=== PATIENT | female | born 1950 | race Caucasian/White ===

== ENCOUNTER 2018-10-29 14:22 | Emergency (ER) | payer MEDICARE, OTHER ==
[~2018-10-29] VITALS: Ht 170.2 cm; Wt 126.6 kg
--- NOTE | 2018-10-29 14:48 | PHYS DOC ---
Past History Past Medical History: DVT Past Surgical History: Cholecystectomy, Other Additional Past Surgical Histo: knee surgeries Smoking: Non-smoker Alcohol Use: None Drug Use: None Adult General Chief Complaint Chief Complaint: LOWER EXTREMITY [facility] HPI Patient is a 68-year-old female presents complaining of left lower extremity swelling. This has been going on intermittently for approximately the past 6 months, however became worse since yesterday. She has a history of previous DVT in her right lower extremity when she broke her arms. She has recently been traveling to [place]. She also has a history of frequent falls but is able to ambulate without any knee, leg, ankle, or hip pain. She is not currently on any blood thinning medication. Denies any chest pain or shortness of breath. She had no relief with her home KENNETH hose. She describes the feeling as a tightness. Symptoms are mild to moderate in intensity[] Review of Systems Review of Systems Constitutional: Denies fever or chills [] Eyes: Denies change in visual acuity, redness, or eye pain [] HENT: Denies nasal congestion or sore throat [] Respiratory: Denies cough or shortness of breath [] Cardiovascular: No additional information not addressed in HPI [] GI: Denies abdominal pain, nausea, vomiting, bloody stools or diarrhea [] : Denies dysuria or hematuria [] Musculoskeletal: Denies back pain or joint pain, see history of present illness [] Integument: Denies rash or skin lesions [] Neurologic: Denies headache, focal weakness or sensory changes [] Endocrine: Denies polyuria or polydipsia [] All other systems were reviewed and found to be within normal limits, except as documented in this note. Allergies Allergies Allergies Coded Allergies Type Severity Reaction Last Updated Verified No Known Drug Allergies 10/29/18 No Physical Exam Physical Exam Constitutional: Well developed, well nourished, no acute distress, non-toxic appearance. [] HENT: Normocephalic, atraumatic, bilateral external ears normal, oropharynx moist, no oral exudates, nose normal. [] Eyes: PERRLA, EOMI, conjunctiva normal, no discharge. [] Neck: Normal range of motion, no tenderness, supple, no stridor. [] Cardiovascular:Heart rate regular rhythm, no murmur [] Lungs & Thorax: Bilateral breath sounds clear to auscultation [] Abdomen: Bowel sounds normal, soft, no tenderness, no masses, no pulsatile masses. Pelvis is stable and 3 planes [] Skin: Warm, dry, no erythema, no rash. [] Back: No tenderness, no CVA tenderness. [] Extremities: No tenderness, no cyanosis, no clubbing, ROM intact, pretibial edema is present bilaterally, and symmetric. Circumference was measured tibial tuberosity, and was bilaterally symmetric at 51 cm.. [] Neurologic: Alert and oriented X 3, normal motor function, normal sensory function, no focal deficits noted. [] Psychologic: Affect normal, judgement normal, mood normal. [] EKG EKG [] Radiology/Procedures Radiology/Procedures PROCEDURE: VENOUS LOWER EXTREMITY LEFT Exam: VENOUS LOWER EXTREMITY LEFT Indication: Left lower extremity swelling. History of prior right lower extremity DVT. Technique: Color-flow and pulsed wave duplex ultrasound with compression of venous structures of the bilateral lower extremities. Comparison: None Available. Findings: Occlusive thrombus extending from the left proximal superficial femoral vein, down to the popliteal vein, and into the posterior tibial vein. Duplex ultrasound with compression of the deep venous structures of the right lower extremity from the common femoral vein through the popliteal vein is negative for DVT. The posterior tibial and peroneal veins are segmentally visualized and patent where seen. Normal venous waveforms and augmentation are noted throughout. Impression: Positive for DVT of the left lower extremity. No right lower extremity DVT.[] Course & Med Decision Making Course & Med Decision Making Pertinent Labs and Imaging studies reviewed. (See chart for details) [] Dragon Disclaimer Dragon Disclaimer This electronic medical record was generated, in whole or in part, using a voice recognition dictation system. Departure Departure: Impression: Primary Impression: Left leg DVT Disposition: HOME/RESIDENCE PRIOR TO ADM Condition: IMPROVED Referrals: PCP,ROEL (PCP) Patient Instructions: Deep Vein Thrombosis Additional Instructions: Follow-up with your regular doctor in 2 days. If you do not have regular doctor a list of local clinics will be provided for you. You need to follow up with a primary care physician because you will be on long-term anticoagulation therapy. Do not take anti-inflammatory medication such as aspirin, ibuprofen or naproxen while taking the Eliquis. Scripts Hydrocodone Bit/Acetaminophen (NORCO 5-325 TABLET) 1 Each Tablet 1 TAB PO Q4-6HRS for severe pain, #20 TAB Prov: BUFFYMATHEWTAQUERIA PEREIRA 10/29/18 Apixaban (Eliquis) 5 Mg Tab.ds.pk 5 MG PO BID for DVT for 28 Days, #56 PKG 10 mg bid for 7 days then 5 mg bid Prov: TAQUERIA SANCHEZ DO 10/29/18 Problem Qualifiers Primary Impression: Left leg DVT Affected thrombotic vein of extremity: unspecified vein of extremity Chronicity: acute Qualified Codes: I82.402 - Acute embolism and thrombosis of unspecified deep veins of left lower extremity TAQUERIA SANCHEZ DO Oct 29, 2018 14:48
--- NOTE | 2018-10-29 15:59 | RAD ---
Exam: VENOUS LOWER EXTREMITY LEFT Indication: Left lower extremity swelling. History of prior right lower extremity DVT. Technique: Color-flow and pulsed wave duplex ultrasound with compression of venous structures of the bilateral lower extremities. Comparison: None Available. Findings: Occlusive thrombus extending from the left proximal superficial femoral vein, down to the popliteal vein, and into the posterior tibial vein. Duplex ultrasound with compression of the deep venous structures of the right lower extremity from the common femoral vein through the popliteal vein is negative for DVT. The posterior tibial and peroneal veins are segmentally visualized and patent where seen. Normal venous waveforms and augmentation are noted throughout. Impression: Positive for DVT of the left lower extremity. No right lower extremity DVT. Electronically signed by: Himanshu Collazo MD (10/29/2018 3:56 PM) [id number]
[2018-10-29] MEDS ORDERED: HYDR-3165 PO (16:44)
[2018-10-29] MEDS ORDERED: APIX5TAB5 PO (16:44)
[2018-10-29 16:57] LABS: BASO % 1 % (0-3); EOS # 0.2 x10^3/uL (0.0-0.7); EOS % 2 % (0-3); HEMATOCRIT 37.7 % (36.0-47.0); HEMOGLOBIN 12.1 g/dL (12.0-15.5); LYMPH # 1.6 x10^3/uL (1.0-4.8); LYMPH % 18 % (24-48); MEAN CORPUSCULAR HEMOGLOBIN 24 pg (25-35); MEAN CORPUSCULAR HGB CONC 32 g/dL (31-37); MEAN CORPUSCULAR VOLUME 75 fL (79-100); MONO # 0.7 x10^3/uL (0.0-1.1); MONO % 8 % (0-9); NEUT # 6.3 x10^3uL (1.8-7.7); NEUT % 72 % (31-73); PLATELET COUNT 299 x10^3/uL (140-400); RED BLOOD COUNT 5.01 x10^6/uL (3.50-5.40); WHITE BLOOD COUNT 8.9 x10^3/uL (4.0-11.0)
[2018-10-29 17:08] LABS: CALCIUM 9.1 mg/dL (8.5-10.1); CREATININE 0.9 mg/dL (0.6-1.0); GFR 62.6; POTASSIUM 3.7 mmol/L (3.5-5.1)
[2018-10-29 17:15] VITALS: BP 176/106
[2018-10-29 17:15] LABS: MICROCYTOSIS SLIGHT
[2018-10-29 17:16] LABS: ANISOCYTOSIS MOD; HYPOCHROMIA SLIGHT; PLT ESTIMATE ADEQUATE (ADEQUATE)
== END 2018-10-29 17:17 | disposition home or self-care (01) ==
LOC: ER 14:22
DX: I82.402 Acute embolism and thrombosis of unspecified deep veins of left lower extremity (principal); R60.0 Localized edema; Z86.718 Personal history of other venous thrombosis and embolism; Z98.890 Other specified postprocedural states
CPT/HCPCS: 36415; 80048; 85025; 85610; 85730; 93971; 99285